=== PATIENT | female | born 1970 | race Caucasian/White ===

== ENCOUNTER → 2022-04-03 | Outpatient (CLI) | payer MEDICAID, SELFPAY ==
[2022-04-03 08:03] VITALS: PULSE 80; PULSE 81; PULSE 86; PULSE 90; PULSE 91; O2SAT 95; O2SAT 96; O2SAT 97; O2SAT 98
--- NOTE | 2022-04-03 15:01 | PCM.PSN.6M ---
PSN 6 Minute Walk Test 6 Minute Walk Test 6 Minute Walk Test: 6 Minute Walk Test PSN:6-Minute Walk Test Start: 04/03/22 08:02 Freq: Status: Active Protocol: [id number] Document 04/03/22 08:03 BAMBI (Rec: 04/03/22 08:05 [id number]) 6 Minute Walk Test Date Performed 04/03/22 Time Performed 07:45 Height 5 ft 4 in Weight: 88.451 kg Weight in Pounds 195.[address]: Riley Silva Assistive device used: None Pre-test Oxygen Delivery Method Room Air Pulse Ox (%) 97 Pulse Rate (60-100 beats/min) 80 Dyspnea Jose Juan Scale (0-10) 0 Exertion Jose Juan Scale (6-20) 6 1st minute Oxygen Delivery Method Room Air Pulse Ox (%) 96 Pulse Rate (60-100 beats/min) 86 2nd minute Oxygen Delivery Method Room Air Pulse Ox (%) 95 Pulse Rate (60-100 beats/min) 86 3rd minute Oxygen Delivery Method Room Air Pulse Ox (%) 96 Pulse Rate (60-100 beats/min) 86 4th minute Oxygen Delivery Method Room Air Pulse Ox (%) 96 Pulse Rate (60-100 beats/min) 90 5th minute Oxygen Delivery Method Room Air Pulse Ox (%) 96 Pulse Rate (60-100 beats/min) 90 6th minute Oxygen Delivery Method Room Air Pulse Ox (%) 96 Pulse Rate (60-100 beats/min) 91 Dyspnea Jose Juan Scale (0-10) 1 Exertion Jose Juan Scale (6-20) 11 Post-test Oxygen Delivery Method Room Air Pulse Ox (%) 98 Pulse Rate (60-100 beats/min) 81 Full Laps Walked 12 Partial Lap, Number of Tiles Walked 26 Total Distance Walked (ft) 734 Interpretation Interpretation: The patient was able to ambulate 734 feet over the course of 6 minutes on room air with no assistive devices or breaks. The patient experienced no significant desaturation or tachycardia during testing. These findings are consistent with a musculoskeletal limitation exercise tolerance. Recommendations Recommendations: No supplemental oxygen is indicated at this time.
== END | disposition home or self-care (01) ==
LOC: PSN 07:39
PROVIDERS: PCP Nurse Practitioner Family; Referring Provider Internal Medicine Critical Care Medicine; Visit Provider Internal Medicine Critical Care Medicine
DX: F17.210 Nicotine dependence, cigarettes, uncomplicated (principal); J44.9 Chronic obstructive pulmonary disease, unspecified
CPT/HCPCS: 94618

== ENCOUNTER → 2022-04-05 | Outpatient (CLI) | payer MEDICAID, SELFPAY ==
--- NOTE | 2022-04-05 07:30 | CT_ITS ---
STUDY: LOW DOSE CT LUNG CANCER SCREENING REASON FOR EXAM: Female, 52 years old. Tobacco Dependency. Patient smoked 1-2 packs per day for 37 years. RADIATION DOSAGE (If Supplied By Facility): CTDIvol = ( 3.02 ) mGy, DLP = ( 101.94 ) mGycm TECHNIQUE: No contrast was administered. Low dose technique was utilized (average mAS-38 and kVp 120). 1.25 mm axial source images with a slice interval of 1.25-mm were reconstructed in lung windows. 2.5 mm axial source images with a slice interval of 2.5-mm were reconstructed in lung windows. 5.0 mm axial source images with a slice interval of 5.0-mm were reconstructed in soft tissue windows. COMPARISON: None. NODULES: No suspicious nodules are seen. Emphysema: Hyperinflation. Emphysematous changes. Bullous formation in the lung apices more prominent on the right side. Focal scarring in the posterior aspect of the right upper lobe. Endobronchial lesion: Unremarkable Aorta: Minimal atherosclerotic calcification of the aortic arch. CORONARY ARTERIES: Coronary artery calcification is not seen. Heart: Unremarkable. Pulmonary artery: Unremarkable. Mediastinal nodes: Unremarkable. Other chest and abdominal findings: CT/Low Dose CT Lung Screening IMPRESSION: Lung-RADS category 2 - Continue annual screening with LDCT in 12 months. IMPORTANT NOTES FOR USE: ACR Lung-RADS Version 1.1 Assessment Categories Release Date: 2018 Category: Coded 0-4 bases on nodule(s) with highest degree of suspicion. Negative screen is defined as categories 1 and 2; a positive screen is defined as categories 3 and 4. Category 3 and 4A nodules that are unchanged on interval CT should be coded as category 2, and individuals returned to screening in 12 months. Category 4X: Category 3 or 4 nodules with additional imaging findings that increase the suspicion of lung cancer, such as spiculation, GGN that doubles in size in 1 year, enlarged lymph notes, etc. Category Modifiers: S (significant finding unrelated to lung cancer) Electronically Signed: Navdeep Whittaker MD at 12:49 EST ,
--- NOTE | 2022-04-05 15:36 | PFTCOMP_ITS ---
COMPLETE PULMONARY FUNCTION TEST INTERPRETATION Brief HPI: Patient is a 52-year-old female, currently under the care of Dr. Silva, who presents to [facility] for complete pulmonary function tests secondary to diagnosis of tobacco dependency. Respiratory therapist reports good effort and reproducible results. Interpretation: Forced expiration spirometry shows a mild large airways obstructive ventilatory defect with an FEV1 of 80% predicted. There is a significant bronchodilator response in FEV1 by strict ATS criteria. Spirograms are of good quality and plateau slowly, indicating slowly emptying areas of the lungs. The respiratory flow volume loop shows decreased expiratory flow rates at high lung volumes consistent with small airways obstruction. Lung volumes by body plethysmography show a normal total lung capacity at 5.03 L, 101% predicted. All other lung volumes are within normal limits. Diffusion capacity by carbon monoxide is normal at 103% predicted. The airway resistance is normal. No previous pulmonary function tests were available for review. Impression: Fully reversible mild large airways obstructive ventilatory defect with normal lung volumes and diffusion capacity
== END | disposition home or self-care (01) ==
LOC: CT 07:30
PROVIDERS: PCP Nurse Practitioner Family; Visit Provider Internal Medicine Critical Care Medicine
DX: F17.210 Nicotine dependence, cigarettes, uncomplicated (principal); J44.9 Chronic obstructive pulmonary disease, unspecified
CPT/HCPCS: 71271; 94060; 94726; 94729